=== PATIENT | male | born 1945 | race Caucasian/White ===

== ENCOUNTER → 2019-09-04 08:27 | Outpatient (CLI) | payer OTHER ==
[2013-12-14 06:23] VITALS: BMI 29.4
[~2019-09-04 08:27] MED LIST: ASPIRIN325 MG PO; CELEBREX200 MG PO; COREG 3.1253.125 MG PO; DIOVAN HCT 160/1 TAB PO; DIOVAN80 MG PO; K-DUR20 MEQ PO; LORTAB 5/500 TA1 TA2 PO; PLAVIX75 MG PO; PRAVACHOL40 MG PO; XANAX0.5 MG PO
--- NOTE | 2019-09-08 11:24 | EC ---
PATIENT:DARNELL RODRIGUEZ DATE OF SERVICE: 09/04/19 SEX: M MEDICAL RECORD: [id number] DATE OF : 47 LOCATION:[facility] AGE OF PATIENT: 73 ADMISSION DATE: 09/04/19 REFERRING PHYSICIAN: INTERPRETING PHYSICIAN: JOEL LANDRY MD ECHOCARDIOGRAM REPORT ECHO CHARGES 4 ECHO COMPLETE Date: 09/04/19 CLINICAL DIAGNOSIS: CAD ECHOCARDIOGRAPHIC MEASUREMENTS (adult normal given) AC root (d.<3.7cm) 3.5 cm LV Septum d (<1.2 cm> 0.7 cm Valve Excursion 1.9 cm LV Septum (systole) 1.3 cm Left Atria (s.<4.0cm> 4.2 cm LVPW d(<1.2cm) 1.0 cm RV (d.<2.3cm) 3.9 cm LVPW (sytole) 1.3 cm LV diastole(<5.6CM) 6.3 cm MV E-F(>70mm/sec) cm LV systole 5.1 cm LVOT Diameter 1.8 cm MV exc.(>10mm) cm Est.ejection fraction (50-75%) % DOPPLER: LVIT cm/sec A 45 cm/sec E 64 cm/sec LA cm/sec RVSP 37.5 mmHg LVOT 76 cm/sec AOP1/2T m/s Asc. Ao 110 cm/sec RVOT 54 cm/sec RA cm/sec PA 82 cm/sec AV Gradient Peak 4.9 mmHg AV Mean 2.8 mmHg AV Area 1.9 cm MV Gradient Peak 2.5 mmHg MV Mean 0.9 mmHg MV Area cm COMMENTS: Railroad Track Inspector: Surendra [facility] Wet Washer Machine: Odalis Landry TAPE# PACS Pericardial Effusion N DATE OF SERVICE: 09/04/2019 FINDINGS: 1. Left ventricular chamber size is mildly dilated. Left ventricular systolic function is preserved at 60%. 2. Left atrium is enlarged at 4.2 cm. Right atrium and right ventricle chamber sizes are within normal limits. 3. Valvular structures have normal structure and motion. 4. Doppler interrogation reveals only trace mitral regurgitation, trace tricuspid regurgitation, no other valvular insufficiency or stenosis. Pulmonary ECHOCARDIOGRAM REPORT [id number] DARNELL RODRIGUEZ systolic pressure estimated at 37 mmHg. 5. No evidence of pericardial effusion or left ventricular thrombus. TRANSINT:[id number] Voice Confirmation ID: [id number] DOCUMENT ID: [id number] JOEL LANDRY MD at 1124 CC: [id number] DICTATION DATE: 09/04/19 142 NATURALIZATION EXAMINER: 09/04/19 1445 DEP CLI 09/04/19 [place] [id number] [place] [id number]
== END | disposition home or self-care (01) ==
LOC: D.ECHO 08:27
PROVIDERS: ATTEND Orthopaedic Surgery
DX: Z02.71 Encounter for disability determination (principal)